=== PATIENT | female | born 1980 | race Two or more races ===

== ENCOUNTER 2024-03-22 20:59 | Emergency (ER) | payer OTHER ==
[~2024-03-22] VITALS: Ht 162.6 cm; Wt 98.9 kg
[2024-03-22] MEDS ORDERED: ACETAMINOPHEN 500 MG GEL..CAP PO ONE (21:45)
[2024-03-22 22:04] LABS: HEMATOCRIT 39.4 % (36.0-45.00); HEMOGLOBIN 13.3 g/dL (12.0-15.00); MEAN CELL VOLUME 87.9 fL (80.00-100.00); MEAN CORPUSCULAR HEMOGLOBIN 29.6 pg (27.00-32.0); MEAN CORPUSCULAR HGB CONC 33.7 g/dl (32.0-36.0); PLATELET COUNT 353 K/uL (150-450); RED BLOOD COUNT 4.48 M/uL (4.00-6.00); RED CELL DISTRIBUTION WIDTH 12.9 % (11.5-14.5)
[2024-03-22 22:36] LABS: URINE APPEARANCE Clear; URINE BILIRRUBIN Negative (NEGATIVE); URINE BLOOD Negative; URINE COLOR Dark Yellow; URINE KETONE 15 (NEGATIVE); URINE LEUKOCYTE Trace; URINE NITRATE Negative; URINE PROTEIN Trace (NEGATIVE)
[2024-03-22 22:40] LABS: URINE BACTERIA 7020.4 uL (0.0-1933); URINE EPITHELIAL CELLS 55.6 uL (0.0-38.8); URINE RBC 10.3 uL (0.0-20.8); URINE WBC 32.3 uL (0.0-23.2)
[2024-03-22 22:45] LABS: URINE CAST 0.15 uL (0.0-1.40); URINE GLUCOSE 500 MG/DL (NEGATIVE)
[2024-03-22 22:49] LABS: ALBUMIN 3.2 gm/dL (3.4-5.0); BILIRUBIN TOTAL 0.31 mg/dL (0.3-1.2); CALCIUM 9.1 mg/dL (8.5-10.1); CREATININE SERUM 0.63 mg/dL (0.55-1.02); GFR 103.63; GLOBULINA 4.5 G/DL (2.4-3.5); POTASSIUM 3.95 mEq/L (3.5-5.1); TOTAL PROTEIN 7.7 gm/dL (6.4-8.2)
[2024-03-23] MEDS ORDERED: MACROBID 100 M100 MG PO (04:08)
== END 2024-03-23 04:31 ==
LOC: ER 21:00
PROVIDERS: General Practice
DX: O23.40 Unspecified infection of urinary tract in pregnancy, unspecified trimester (principal); O26.899 Other specified pregnancy related conditions, unspecified trimester; R10.2 Pelvic and perineal pain; R10.9 Unspecified abdominal pain; Z3A.12 12 weeks gestation of pregnancy; Z88.0 Allergy status to penicillin; Z91.013 Allergy to seafood

== ENCOUNTER 2024-04-14 11:28 | Inpatient (IN) | payer OTHER ==
[~2024-04-14] VITALS: Ht 165.1 cm; Wt 105.7 kg
[~2024-04-14 11:28] MED LIST: MACROBID 100 M100 MG PO
[2024-04-14 13:11] VITALS: BP 117/76
[2024-04-14] MEDS ORDERED: 0.9 % SODIUM CHLORIDE 1,000 ML IV SCH (14:00)
[2024-04-14] MEDS ORDERED: INSULIN LISPRO 1,000 UNIT/10 ML UNITS SUBCUTANEO STA (15:26)
[2024-04-14] MEDS ORDERED: INSULIN LISPRO 1,000 UNIT/10 ML UNITS SUBCUTANEO SCH (17:00)
[2024-04-14 17:58] VITALS: BP 106/67
[2024-04-14] MEDS ORDERED: INSULIN NPH HUMAN ISOPHANE 1,000 UNITS/10 ML UNITS SUBCUTANEO SCH (21:00)
[2024-04-15 00:41] VITALS: BP 103/67
[2024-04-15 08:39] VITALS: BP 123/80
[2024-04-15] MEDS ORDERED: PNV,CALCIUM 72/IRON/FOLIC ACID 1 TAB TABLET PO SCH (09:00)
[2024-04-15] MEDS ORDERED: INSULIN NPH HUMAN ISOPHANE 1,000 UNITS/10 ML UNITS SUBCUTANEO SCH (09:00)
[2024-04-15] MEDS ORDERED: ASPIRIN 81 MG TABLET.EC PO SCH (09:00)
== END 2024-04-15 13:09 | disposition home or self-care (01) | DRG 833 ==
LOC: OB/GYN 11:28
PROVIDERS: ADMIT Obstetrics & Gynecology; ATTEND Obstetrics & Gynecology
PROC: 4A1HXCZ Monitoring of Products of Conception, Cardiac Rate, External Approach (ICD-10-PCS; principal; 2024-04-14)
DX: O24.112 Pre-existing type 2 diabetes mellitus, in pregnancy, second trimester (principal); E11.65 Type 2 diabetes mellitus with hyperglycemia; Z3A.15 15 weeks gestation of pregnancy; Z79.4 Long term (current) use of insulin